=== PATIENT | female | born 1995 | race Caucasian/White ===

== ENCOUNTER 2023-06-20 05:34 | Inpatient (IN) | payer OTHER ==
[2023-06-20] MEDS ORDERED: SODIUM CHLORIDE 0.9% 500 ML INFUS.BAG IV ONE (05:56)
[2023-06-20] MEDS ORDERED: ONDANSETRON 4 MG/2 ML VIAL IVPUSH ONE (05:56)
[2023-06-20] MEDS ORDERED: ACETAMINOPHEN 1000 MG/100 ML BAG IVPB ONE (05:56)
[2023-06-20] MEDS ORDERED: FAMOTIDINE 20 MG/50 ML IVPB 20 MG/50 ML MG IVPB ONE ×2 (05:57→06:15)
[2023-06-20] MEDS ORDERED: MAG HYDROX/AL HYDROX/SIMETH 30 ML UNIT-DOSE CUP PO ONE (05:59)
[2023-06-20] MEDS ORDERED: ACETAMINOPHEN INJECTION 100 ML IVPB ONE (06:14)
[2023-06-20] MEDS ORDERED: ONDANSETRON 4 MG/2 ML VIAL ONE (06:15)
[2023-06-20] MEDS ORDERED: MAG HYDROX/AL HYDROX/SIMETH 30 ML UNIT-DOSE CUP ONE (06:15)
[2023-06-20 07:23] LABS: URINE APPEARANCE TURBID; URINE BILIRUBIN NEGATIVE (NEGATIVE); URINE COLOR YELLOW; URINE GLUCOSE (UA) NEGATIVE (NEGATIVE); URINE KETONE 2+ (NEGATIVE); URINE LEUK ESTERASE NEGATIVE (NEGATIVE); URINE NITRITE NEGATIVE (NEGATIVE); URINE PROTEIN NEGATIVE (NEGATIVE); URINE UROBILINOGEN 0.2 mg/dL (0.2-1.0)
[2023-06-20 07:26] LABS: BASO % 0.6 % (0-2.0); EOS % 1.6 % (0-4.5); HEMATOCRIT 41.2 % (32.4-45.2); HEMOGLOBIN 13.8 GM/dL (10.7-15.3); LYMPH % 27.4 % (8-40); MCH 30.7 pg (25.7-33.7); MCHC 33.5 g/dl (32.0-36.0); MEAN CELL VOLUME 91.7 fl (80-96); MEAN PLT VOLUME 10.2 fl (7.5-11.1); NEUT % 64.4 % (42.8-82.8); PLATELET COUNT 242 10^3/uL (134-434); RBC 4.49 M/mm3 (3.60-5.2); WHITE BLOOD COUNT 11.7 K/mm3 (4.0-10.0)
[2023-06-20 07:40] LABS: POTASSIUM 3.5 mmol/L (3.5-5.1)
[2023-06-20 07:42] LABS: BLOOD UREA NITROGEN 14.3 mg/dL (7-18); CALCIUM 9.1 mg/dL (8.5-10.1)
[2023-06-20 07:43] LABS: ALBUMIN 4.2 g/dl (3.4-5.0)
[2023-06-20 07:45] LABS: CREATININE 0.8 mg/dL (0.55-1.3)
[2023-06-20 07:47] LABS: BILIRUBIN,TOTAL 0.5 mg/dL (0.2-1)
[2023-06-20] MEDS ORDERED: PIPERACILLIN/TAZOB 3.375 GM 3.375 GM in DEXTROSE 5%-WATER - 50 ML IVPB SCH (12:15)
[2023-06-20] MEDS ORDERED: PIPERACILLIN/TAZOB 3.375 GM 3.375 GM/50 ML BAG IVPB ONE (14:20)
[2023-06-20] MEDS: PIPERACILLIN/TAZOB 3.375 GM 3.375 GM in DEXTROSE 5%-WATER - 50 ML IVPB SCH (14:35)
[2023-06-20] MEDS ORDERED: DEXTROSE 5%-0.45% SALINE 1,000 ML IV SCH (15:45)
[2023-06-20] MEDS ORDERED: TRIMETHOBENZAMIDE HCL 200MG/2ML INJ IM PRN (21:22)
[2023-06-20 23:57] VITALS: BMI 29.2
[2023-06-21] MEDS: PIPERACILLIN/TAZOB 3.375 GM 3.375 GM in DEXTROSE 5%-WATER - 50 ML IVPB SCH ×3 (02:03→18:38)
[2023-06-21] MEDS ORDERED: ENOXAPARIN NA (PORCINE) 40 MG/0.4 ML DISP.SYRIN SQ SCH (10:00)
[2023-06-21 11:31] LABS: BASO % 0.9 % (0-2.0); EOS % 1.9 % (0-4.5); HEMOGLOBIN 13.2 GM/dL (10.7-15.3); INR 1.16 (0.83-1.09); LYMPH % 38.1 % (8-40); MCH 31.3 pg (25.7-33.7); MCHC 34.8 g/dl (32.0-36.0); MEAN CELL VOLUME 89.8 fl (80-96); MEAN PLT VOLUME 10.2 fl (7.5-11.1); NEUT % 51.1 % (42.8-82.8); PLATELET COUNT 246 10^3/uL (134-434); PROTHROMBIN TIME (PATIENT) 13.4 SEC (9.7-13.0); RBC 4.22 M/mm3 (3.60-5.2); RDW 13.2 % (11.6-15.6); WHITE BLOOD COUNT 8.8 K/mm3 (4.0-10.0)
[2023-06-21 11:49] LABS: POTASSIUM 3.3 mmol/L (3.5-5.1)
[2023-06-21] MEDS ORDERED: FENTANYL CITRATE/PF 50 MCG/ML VIAL ONE (11:53)
[2023-06-21] MEDS ORDERED: MIDAZOLAM HCL 2 MG/2 ML SINGLE DOSE VIAL ONE (11:53)
[2023-06-21] MEDS ORDERED: INDOMETHACIN 50 MG RECTAL SUPPOSITORY PR ONE (12:15)
[2023-06-21] MEDS ORDERED: IOHEXOL 300 MG/ML INFUS..BTL IJ ONE (12:27)
[2023-06-21 12:34] LABS: ALBUMIN 3.5 g/dl (3.4-5.0)
[2023-06-21 12:35] LABS: BLOOD UREA NITROGEN 4.5 mg/dL (7-18)
[2023-06-21 12:36] LABS: CALCIUM 8.1 mg/dL (8.5-10.1)
[2023-06-21 12:38] LABS: CREATININE 0.7 mg/dL (0.55-1.3); TOT PROT 6.6 g/dl (6.4-8.2)
[2023-06-21] MEDS ORDERED: LACTATED RINGERS SOLUTION 1,000 ML/1,000 ML INFUS.BAG IV SCH ×2 (13:00→21:00)
[2023-06-22] MEDS: PIPERACILLIN/TAZOB 3.375 GM 3.375 GM in DEXTROSE 5%-WATER - 50 ML IVPB SCH ×3 (02:52→17:35)
[2023-06-22] MEDS ORDERED: LACTATED RINGERS SOLUTION 1,000 ML/1,000 ML INFUS.BAG IV SCH (08:00)
[2023-06-22 09:06] LABS: MAGNESIUM 2.3 mg/dL (1.8-2.4)
[2023-06-22 09:10] LABS: PHOSPHOROUS 2.8 mg/dL (2.5-4.9)
[2023-06-22 09:27] LABS: BASO % 0.5 % (0-2.0); EOS % 0.2 % (0-4.5); HEMATOCRIT 35.6 % (32.4-45.2); HEMOGLOBIN 12.2 GM/dL (10.7-15.3); LYMPH % 24.9 % (8-40); MCH 31.3 pg (25.7-33.7); MCHC 34.2 g/dl (32.0-36.0); MEAN CELL VOLUME 91.5 fl (80-96); MEAN PLT VOLUME 9.9 fl (7.5-11.1); MONO % 6.9 % (3.8-10.2); NEUT % 67.5 % (42.8-82.8); PLATELET COUNT 221 10^3/uL (134-434); RBC 3.89 M/mm3 (3.60-5.2); RDW 12.8 % (11.6-15.6)
[2023-06-22] MEDS ORDERED: POTASSIUM CHLORIDE ORAL LIQUID 20 MEQ/15 ML PO ONE (09:30)
[2023-06-22 09:43] LABS: POTASSIUM 3.6 mmol/L (3.5-5.1)
[2023-06-22] MEDS: POLYETHYLENE GLYCOL (HEALTHYLAX) 3350 17 GM PACKET PO SCH (09:50)
[2023-06-22 09:52] LABS: CREATININE 0.6 mg/dL (0.55-1.3); MAGNESIUM 2.1 mg/dL (1.8-2.4)
[2023-06-22 09:55] LABS: TOT PROT 6.1 g/dl (6.4-8.2)
[2023-06-22 09:59] LABS: ALBUMIN 3.2 g/dl (3.4-5.0); PHOSPHOROUS 3.1 mg/dL (2.5-4.9)
[2023-06-22 10:01] LABS: CALCIUM 8.5 mg/dL (8.5-10.1)
[2023-06-22 10:02] LABS: BILIRUBIN,DIRECT 0.2 mg/dL (0.0-0.2)
[2023-06-22 10:36] LABS: BILIRUBIN,TOTAL 0.7 mg/dL (0.2-1)
[2023-06-22] MEDS ORDERED: ACETAMINOPHEN 1000 MG/100 ML BAG IVPB PRN (12:12)
[2023-06-22] MEDS: LACTATED RINGERS SOLUTION 1,000 ML/1,000 ML INFUS.BAG IV SCH ×2 (16:04→22:17)
[2023-06-23] MEDS: PIPERACILLIN/TAZOB 3.375 GM 3.375 GM in DEXTROSE 5%-WATER - 50 ML IVPB SCH (02:00)
[2023-06-23] MEDS: LACTATED RINGERS SOLUTION 1,000 ML/1,000 ML INFUS.BAG IV SCH ×3 (05:28→17:39)
[2023-06-23] MEDS: POLYETHYLENE GLYCOL (HEALTHYLAX) 3350 17 GM PACKET PO SCH (09:00)
[2023-06-23 09:57] LABS: HEMATOCRIT 37.8 % (32.4-45.2); HEMOGLOBIN 12.6 GM/dL (10.7-15.3); MCH 30.9 pg (25.7-33.7); MCHC 33.4 g/dl (32.0-36.0); MEAN CELL VOLUME 92.6 fl (80-96); MEAN PLT VOLUME 10.2 fl (7.5-11.1); PLATELET COUNT 229 10^3/uL (134-434); RBC 4.08 M/mm3 (3.60-5.2); RDW 13.1 % (11.6-15.6); WHITE BLOOD COUNT 12.8 K/mm3 (4.0-10.0)
[2023-06-23 09:59] LABS: POTASSIUM 3.8 mmol/L (3.5-5.1)
[2023-06-23 10:03] LABS: CALCIUM 8.4 mg/dL (8.5-10.1)
[2023-06-23 10:04] LABS: ALBUMIN 3.5 g/dl (3.4-5.0); BLOOD UREA NITROGEN 6.5 mg/dL (7-18); MAGNESIUM 1.9 mg/dL (1.8-2.4)
[2023-06-23 10:06] LABS: CREATININE 0.7 mg/dL (0.55-1.3)
[2023-06-23 10:07] LABS: TOT PROT 6.4 g/dl (6.4-8.2)
[2023-06-23 10:08] LABS: PHOSPHOROUS 3.5 mg/dL (2.5-4.9)
[2023-06-23 10:09] LABS: BILIRUBIN,TOTAL 0.8 mg/dL (0.2-1)
[2023-06-23 21:11] VITALS: RESP 18
[2023-06-24] MEDS: LACTATED RINGERS SOLUTION 1,000 ML/1,000 ML INFUS.BAG IV SCH ×3 (03:17→16:10)
[2023-06-24 09:48] LABS: BASO % 0.5 % (0-2.0); EOS % 1.8 % (0-4.5); HEMATOCRIT 37.4 % (32.4-45.2); HEMOGLOBIN 12.7 GM/dL (10.7-15.3); LYMPH % 28.2 % (8-40); MCH 30.9 pg (25.7-33.7); MCHC 33.8 g/dl (32.0-36.0); MEAN CELL VOLUME 91.4 fl (80-96); MONO % 7.9 % (3.8-10.2); NEUT % 61.6 % (42.8-82.8); PLATELET COUNT 241 10^3/uL (134-434); RDW 12.9 % (11.6-15.6); WHITE BLOOD COUNT 11.6 K/mm3 (4.0-10.0)
[2023-06-24 10:09] LABS: POTASSIUM 3.7 mmol/L (3.5-5.1)
[2023-06-24 10:18] LABS: CALCIUM 8.4 mg/dL (8.5-10.1)
[2023-06-24 10:19] LABS: ALBUMIN 3.3 g/dl (3.4-5.0); BLOOD UREA NITROGEN 6.9 mg/dL (7-18)
[2023-06-24 10:22] LABS: CREATININE 0.6 mg/dL (0.55-1.3)
[2023-06-24 10:23] LABS: BILIRUBIN,TOTAL 1.4 mg/dL (0.2-1); TOT PROT 6.5 g/dl (6.4-8.2)
[2023-06-24] MEDS: POLYETHYLENE GLYCOL (HEALTHYLAX) 3350 17 GM PACKET PO SCH (12:38)
[2023-06-25] MEDS: POLYETHYLENE GLYCOL (HEALTHYLAX) 3350 17 GM PACKET PO SCH (09:25)
[2023-06-25 10:51] VITALS: BP 101/75; PULSE 74; TEMP 97.7
[2023-06-25 10:59] LABS: HEMATOCRIT 39.2 % (32.4-45.2); HEMOGLOBIN 13.7 GM/dL (10.7-15.3); MCH 31.6 pg (25.7-33.7); MCHC 35.1 g/dl (32.0-36.0); MEAN PLT VOLUME 9.7 fl (7.5-11.1); PLATELET COUNT 265 10^3/uL (134-434); RBC 4.35 M/mm3 (3.60-5.2); RDW 12.7 % (11.6-15.6); WHITE BLOOD COUNT 10.7 K/mm3 (4.0-10.0)
[2023-06-25 11:22] LABS: POTASSIUM 3.7 mmol/L (3.5-5.1)
[2023-06-25 11:29] LABS: ALBUMIN 3.6 g/dl (3.4-5.0); BLOOD UREA NITROGEN 8.7 mg/dL (7-18); CALCIUM 8.9 mg/dL (8.5-10.1); MAGNESIUM 2.3 mg/dL (1.8-2.4)
[2023-06-25 11:32] LABS: CREATININE 0.7 mg/dL (0.55-1.3); PHOSPHOROUS 2.9 mg/dL (2.5-4.9)
[2023-06-25 11:33] LABS: TOT PROT 7.1 g/dl (6.4-8.2)
[2023-06-25 11:34] LABS: BILIRUBIN,TOTAL 0.5 mg/dL (0.2-1)
== END 2023-06-25 14:01 | disposition home or self-care (01) ==
LOC: JER 05:34 → JERBED 12:47 → J6S 18:51
PROVIDERS: ADMIT Internal Medicine; ATTEND Internal Medicine
PROC: 0FC98ZZ Extirpation of Matter from Common Bile Duct, Via Natural or Artificial Opening Endoscopic (ICD-10-PCS; principal; 2023-06-21 11:30)
DX: K80.50 Calculus of bile duct without cholangitis or cholecystitis without obstruction (principal); R94.5 Abnormal results of liver function studies; E87.6 Hypokalemia; K85.80 Other acute pancreatitis without necrosis or infection; R11.2 Nausea with vomiting, unspecified; T81.89XA Other complications of procedures, not elsewhere classified, initial encounter; Y83.8 Other surgical procedures as the cause of abnormal reaction of the patient, or of later complication, without mention of misadventure at the time of the procedure
CPT/HCPCS: 0241U-QW; 36415; 74177-TC; 76000-TC-FY; 76705-TC; 80053; 81003; 82150; 82248; 83690; 83735; 84100; 84703; 85025; 85027; 85610; 86140; 86850; 86900; 86901; 87086; 99285-25; Q9967

== ENCOUNTER 2023-07-16 03:58 | Inpatient (IN) | payer OTHER ==
[2023-07-16] MEDS ORDERED: ONDANSETRON 4 MG/2 ML VIAL IVPUSH ONE ×2 (04:40→10:20)
[2023-07-16] MEDS ORDERED: FAMOTIDINE 20 MG/50 ML IVPB 20 MG/50 ML MG IVPB ONE ×2 (04:41→05:19)
[2023-07-16] MEDS ORDERED: ACETAMINOPHEN 1000 MG/100 ML BAG IVPB ONE (04:41)
[2023-07-16] MEDS ORDERED: SODIUM CHLORIDE 1,000 ML IV STA (05:15)
[2023-07-16] MEDS ORDERED: ACETAMINOPHEN INJECTION 0 ML IVPB ONE (05:18)
[2023-07-16] MEDS ORDERED: ONDANSETRON 4 MG/2 ML VIAL ONE ×3 (05:18→18:36)
[2023-07-16 06:34] LABS: BASO % 0.4 % (0-2.0); EOS % 0.5 % (0-4.5); HEMATOCRIT 43.8 % (32.4-45.2); HEMOGLOBIN 14.5 GM/dL (10.7-15.3); LYMPH % 13.9 % (8-40); MCH 30.5 pg (25.7-33.7); MCHC 33.2 g/dl (32.0-36.0); MEAN CELL VOLUME 91.9 fl (80-96); MEAN PLT VOLUME 10.5 fl (7.5-11.1); MONO % 3.4 % (3.8-10.2); NEUT % 81.8 % (42.8-82.8); PLATELET COUNT 237 10^3/uL (134-434); RBC 4.76 M/mm3 (3.60-5.2); WHITE BLOOD COUNT 11.5 K/mm3 (4.0-10.0)
[2023-07-16 06:48] LABS: POTASSIUM 3.8 mmol/L (3.5-5.1)
[2023-07-16 06:49] LABS: ALBUMIN 4.5 g/dl (3.4-5.0); CALCIUM 9.4 mg/dL (8.5-10.1)
[2023-07-16 06:51] LABS: BLOOD UREA NITROGEN 7.5 mg/dL (7-18)
[2023-07-16 06:52] LABS: CREATININE 0.7 mg/dL (0.55-1.3); PHOSPHOROUS 2.5 mg/dL (2.5-4.9)
[2023-07-16 06:54] LABS: BILIRUBIN,TOTAL 0.5 mg/dL (0.2-1); TOT PROT 8.3 g/dl (6.4-8.2)
[2023-07-16 07:10] LABS: INR 1.03 (0.83-1.09)
[2023-07-16 07:13] LABS: ACTIVATED PTT 37.8 SECONDS (25.2-36.5)
[2023-07-16] MEDS ORDERED: ACETAMINOPHEN INJECTION 100 ML IVPB ONE (09:05)
[2023-07-16] MEDS ORDERED: FENTANYL CITRATE/PF 50 MCG/ML VIAL ONE (09:10)
[2023-07-16 09:13] LABS: PH,URINE 7.5 (5.0-8.0); URINE APPEARANCE CLEAR; URINE BILIRUBIN NEGATIVE (NEGATIVE); URINE COLOR YELLOW; URINE GLUCOSE (UA) NEGATIVE (NEGATIVE); URINE KETONE 1+ (NEGATIVE); URINE LEUK ESTERASE NEGATIVE (NEGATIVE); URINE NITRITE NEGATIVE (NEGATIVE); URINE PROTEIN NEGATIVE (NEGATIVE); URINE UROBILINOGEN 0.2 mg/dL (0.2-1.0)
[2023-07-16] MEDS ORDERED: morphine CARPU-JECT 2 MG/1 ML DISP.SYRIN IVPUSH ONE (12:50)
[2023-07-16] MEDS ORDERED: METOCLOPRAMIDE HCL INJECTION 10 MG/2 ML VIAL IVPB ONE (13:34)
[2023-07-16] MEDS ORDERED: METOCLOPRAMIDE HCL INJECTION 10 MG/2 ML VIAL ONE (13:35)
[2023-07-16] MEDS: LACTATED RINGERS SOLUTION 1,000 ML/1,000 ML INFUS.BAG IV SCH (16:51)
[2023-07-16] MEDS: ONDANSETRON 4 MG/2 ML VIAL IVPUSH PRN (18:48)
[2023-07-17] MEDS: LACTATED RINGERS SOLUTION 1,000 ML/1,000 ML INFUS.BAG IV SCH ×3 (04:14→16:25)
[2023-07-17 04:41] VITALS: BMI 28.9
[2023-07-17] MEDS: ACETAMINOPHEN 1000 MG/100 ML BAG IVPB PRN ×3 (06:11→18:11)
[2023-07-17 10:57] LABS: BASO % 0.6 % (0-2.0); EOS % 1.1 % (0-4.5); HEMATOCRIT 40.7 % (32.4-45.2); HEMOGLOBIN 13.8 GM/dL (10.7-15.3); LYMPH % 17.4 % (8-40); MCH 30.6 pg (25.7-33.7); MCHC 33.9 g/dl (32.0-36.0); MEAN CELL VOLUME 90.3 fl (80-96); MEAN PLT VOLUME 9.9 fl (7.5-11.1); MONO % 6.4 % (3.8-10.2); NEUT % 74.5 % (42.8-82.8); PLATELET COUNT 221 10^3/uL (134-434); RBC 4.51 M/mm3 (3.60-5.2); WHITE BLOOD COUNT 11.9 K/mm3 (4.0-10.0)
[2023-07-17 11:35] LABS: POTASSIUM 3.8 mmol/L (3.5-5.1)
[2023-07-17 11:38] LABS: CALCIUM 8.8 mg/dL (8.5-10.1)
[2023-07-17 11:39] LABS: BLOOD UREA NITROGEN 6.1 mg/dL (7-18)
[2023-07-17 11:42] LABS: CREATININE 0.6 mg/dL (0.55-1.3)
[2023-07-17] MEDS: ONDANSETRON 4 MG/2 ML VIAL IVPUSH PRN ×2 (12:10→23:00)
[2023-07-17 12:42] LABS: ALBUMIN 3.8 g/dl (3.4-5.0)
[2023-07-17 12:45] LABS: BILIRUBIN,DIRECT 0.2 mg/dL (0.0-0.2)
[2023-07-17 12:46] LABS: BILIRUBIN,TOTAL 0.7 mg/dL (0.2-1)
[2023-07-17] MEDS ORDERED: CEFTRIAXONE 1 GM in DEXTROSE 5%-WATER - 50 ML IVPB ONE (14:30)
[2023-07-17] MEDS ORDERED: AMINO ACIDS/PROTEIN HYDROLYS 30 ML LIQUID.PKT PO SCH (17:30)
[2023-07-18 08:36] LABS: BASO % 0.5 % (0-2.0); EOS % 1.8 % (0-4.5); HEMATOCRIT 38.1 % (32.4-45.2); HEMOGLOBIN 13.3 GM/dL (10.7-15.3); LYMPH % 25.5 % (8-40); MCH 31.3 pg (25.7-33.7); MCHC 34.9 g/dl (32.0-36.0); MEAN CELL VOLUME 89.5 fl (80-96); MEAN PLT VOLUME 10.3 fl (7.5-11.1); NEUT % 64.2 % (42.8-82.8); PLATELET COUNT 218 10^3/uL (134-434); RBC 4.26 M/mm3 (3.60-5.2); RDW 13.2 % (11.6-15.6); WHITE BLOOD COUNT 9.7 K/mm3 (4.0-10.0)
[2023-07-18 08:48] LABS: POTASSIUM 3.7 mmol/L (3.5-5.1)
[2023-07-18 08:50] LABS: CALCIUM 8.5 mg/dL (8.5-10.1)
[2023-07-18 08:51] LABS: ALBUMIN 3.6 g/dl (3.4-5.0); BLOOD UREA NITROGEN 5.6 mg/dL (7-18)
[2023-07-18 08:53] LABS: CREATININE 0.6 mg/dL (0.55-1.3)
[2023-07-18 08:55] LABS: BILIRUBIN,TOTAL 0.7 mg/dL (0.2-1); TOT PROT 6.6 g/dl (6.4-8.2)
[2023-07-18] MEDS: LACTATED RINGERS SOLUTION 1,000 ML/1,000 ML INFUS.BAG IV SCH ×2 (11:38→16:13)
[2023-07-18] MEDS: ACETAMINOPHEN 1000 MG/100 ML BAG IVPB PRN (12:28)
[2023-07-18] MEDS: ONDANSETRON 4 MG/2 ML VIAL IVPUSH PRN (17:33)
[2023-07-18] MEDS ORDERED: ACETAMINOPHEN 1000 MG/100 ML BAG IVPB PRN (19:43)
[2023-07-18] MEDS: KETOROLAC TROMETHAMINE 15 MG/ML VIAL IVPUSH SCH (21:13)
[2023-07-19] MEDS: KETOROLAC TROMETHAMINE 15 MG/ML VIAL IVPUSH SCH ×4 (03:13→21:13)
[2023-07-19] MEDS: CEFTRIAXONE 1 GM in DEXTROSE 5%-WATER - 50 ML IVPB SCH (09:26)
[2023-07-19 10:10] LABS: BASO % 0.4 % (0-2.0); EOS % 2.1 % (0-4.5); HEMATOCRIT 38.5 % (32.4-45.2); HEMOGLOBIN 12.9 GM/dL (10.7-15.3); LYMPH % 25.3 % (8-40); MCH 30.7 pg (25.7-33.7); MCHC 33.5 g/dl (32.0-36.0); MEAN CELL VOLUME 91.5 fl (80-96); MEAN PLT VOLUME 10.1 fl (7.5-11.1); NEUT % 63.2 % (42.8-82.8); PLATELET COUNT 214 10^3/uL (134-434); RBC 4.21 M/mm3 (3.60-5.2); RDW 12.7 % (11.6-15.6); WHITE BLOOD COUNT 9.9 K/mm3 (4.0-10.0)
[2023-07-19 10:37] LABS: POTASSIUM 3.9 mmol/L (3.5-5.1)
[2023-07-19 10:40] LABS: CALCIUM 8.9 mg/dL (8.5-10.1); MAGNESIUM 2.1 mg/dL (1.8-2.4)
[2023-07-19 10:42] LABS: ALBUMIN 3.4 g/dl (3.4-5.0)
[2023-07-19 10:43] LABS: CREATININE 0.6 mg/dL (0.55-1.3)
[2023-07-19 10:45] LABS: BILIRUBIN,TOTAL 0.7 mg/dL (0.2-1); TOT PROT 6.6 g/dl (6.4-8.2)
[2023-07-19] MEDS ORDERED: INDOMETHACIN 50 MG RECTAL SUPPOSITORY PR ONE (12:00)
[2023-07-19] MEDS ORDERED: FENTANYL CITRATE/PF 50 MCG/ML VIAL ONE (14:57)
[2023-07-19] MEDS ORDERED: IOHEXOL 180 MG/1 ML ML IJ ONE (15:11)
[2023-07-19] MEDS: LACTATED RINGERS SOLUTION 1,000 ML/1,000 ML INFUS.BAG IV SCH ×2 (16:27→21:19)
[2023-07-19] MEDS ORDERED: LACTATED RINGERS SOLUTION 1,000 ML/1,000 ML INFUS.BAG IV SCH (23:00)
[2023-07-20] MEDS: KETOROLAC TROMETHAMINE 15 MG/ML VIAL IVPUSH SCH ×3 (02:06→18:27)
[2023-07-20 08:44] LABS: BASO % 0.3 % (0-2.0); EOS % 0.6 % (0-4.5); HEMATOCRIT 37.7 % (32.4-45.2); HEMOGLOBIN 13.2 GM/dL (10.7-15.3); LYMPH % 19.4 % (8-40); MCH 31.1 pg (25.7-33.7); MCHC 34.9 g/dl (32.0-36.0); MEAN PLT VOLUME 10.2 fl (7.5-11.1); NEUT % 71.7 % (42.8-82.8); PLATELET COUNT 230 10^3/uL (134-434); RBC 4.24 M/mm3 (3.60-5.2); RDW 12.8 % (11.6-15.6); WHITE BLOOD COUNT 10.1 K/mm3 (4.0-10.0)
[2023-07-20 08:57] LABS: ALBUMIN 3.2 g/dl (3.4-5.0)
[2023-07-20 08:58] LABS: BLOOD UREA NITROGEN 7.2 mg/dL (7-18); CALCIUM 8.7 mg/dL (8.5-10.1)
[2023-07-20 09:00] LABS: CREATININE 0.5 mg/dL (0.55-1.3)
[2023-07-20] MEDS ORDERED: LACTATED RINGERS SOLUTION 1,000 ML/1,000 ML INFUS.BAG IV SCH ×2 (09:00→18:00)
[2023-07-20 09:02] LABS: BILIRUBIN,TOTAL 0.6 mg/dL (0.2-1); TOT PROT 6.3 g/dl (6.4-8.2)
[2023-07-20] MEDS: CEFTRIAXONE 1 GM in DEXTROSE 5%-WATER - 50 ML IVPB SCH (09:12)
[2023-07-20] MEDS ORDERED: INDOCYANINE GREEN 25 MG/10 ML VIAL IVPUSH ONE (16:21)
[2023-07-20] MEDS ORDERED: FENTANYL CITRATE/PF 50 MCG/ML VIAL ONE ×6 (17:01→21:24)
[2023-07-20] MEDS ORDERED: MIDAZOLAM HCL 2 MG/2 ML SINGLE DOSE VIAL ONE (17:02)
[2023-07-20] MEDS ORDERED: ROCURONIUM BROMIDE 50 MG/5 ML SYRINGE ONE ×2 (17:02→19:18)
[2023-07-20] MEDS ORDERED: PROPOFOL 20 ML ONE (17:02)
[2023-07-20] MEDS ORDERED: ONDANSETRON 4 MG/2 ML VIAL ONE ×2 (17:26→20:11)
[2023-07-20] MEDS ORDERED: DEXAMETHASONE SOD PHOSPHATE 4 MG/1 ML VIAL ONE (17:26)
[2023-07-20] MEDS ORDERED: cefOXitin SODIUM 2 GM VIAL (RESTRICTED TO ID) IVPB ONE (17:30)
[2023-07-20] MEDS ORDERED: BUPIVACAINE HCL/PF 0.5% (5 MG/ML) 30 ML VIAL IJ ONE (17:51)
[2023-07-20] MEDS ORDERED: HYDROmorphone HCl 2 MG/ML VIAL ONE (18:28)
[2023-07-20] MEDS ORDERED: NEOSTIGMINE METHYLSULFATE 0.5 MG/1 ML - 10 ML MDV ONE (20:10)
[2023-07-20] MEDS ORDERED: ONDANSETRON 4 MG/2 ML VIAL IVPUSH PRN ×2 (20:28→20:40)
[2023-07-20] MEDS ORDERED: LACTATED RINGERS SOLUTION 1,000 ML IV SCH (20:30)
[2023-07-20] MEDS ORDERED: oxyCODONE HCL 5 MG TABLET PO PRN (20:40)
[2023-07-20] MEDS ORDERED: KETOROLAC TROMETHAMINE 30 MG/1 ML VIAL ONE (20:43)
[2023-07-20] MEDS: KETOROLAC TROMETHAMINE 15 MG/ML VIAL IVPUSH ONE ×2 (20:45→21:26)
[2023-07-20] MEDS: LACTATED RINGERS SOLUTION 1,000 ML IV SCH (21:50)
[2023-07-21] MEDS ORDERED: IBUPROFEN 600 MG TABLET (FP) PO PRN (03:00)
[2023-07-21 03:32] VITALS: RESP 18
[2023-07-21] MEDS: oxyCODONE HCL 5 MG TABLET PO PRN ×2 (05:23→10:41)
[2023-07-21] MEDS: LACTATED RINGERS SOLUTION 1,000 ML IV SCH ×2 (05:43→22:44)
[2023-07-21 08:37] LABS: POTASSIUM 3.9 mmol/L (3.5-5.1)
[2023-07-21 08:50] LABS: ALBUMIN 3.2 g/dl (3.4-5.0); CALCIUM 8.4 mg/dL (8.5-10.1)
[2023-07-21 08:51] LABS: BLOOD UREA NITROGEN 7.8 mg/dL (7-18)
[2023-07-21 08:53] LABS: CREATININE 0.6 mg/dL (0.55-1.3)
[2023-07-21 08:55] LABS: BILIRUBIN,TOTAL 0.4 mg/dL (0.2-1); TOT PROT 6.1 g/dl (6.4-8.2)
[2023-07-21 08:56] LABS: BASO % 0.5 % (0-2.0); EOS % 1.2 % (0-4.5); HEMATOCRIT 36.2 % (32.4-45.2); HEMOGLOBIN 11.9 GM/dL (10.7-15.3); LYMPH % 17.6 % (8-40); MCH 30.5 pg (25.7-33.7); MEAN CELL VOLUME 92.3 fl (80-96); MONO % 6.4 % (3.8-10.2); NEUT % 74.3 % (42.8-82.8); PLATELET COUNT 242 10^3/uL (134-434); RBC 3.92 M/mm3 (3.60-5.2); WHITE BLOOD COUNT 10.1 K/mm3 (4.0-10.0)
[2023-07-21] MEDS: CEFTRIAXONE 1 GM in DEXTROSE 5%-WATER - 50 ML IVPB SCH (10:55)
[2023-07-22 10:12] LABS: POTASSIUM 3.5 mmol/L (3.5-5.1)
[2023-07-22] MEDS: CEFTRIAXONE 1 GM in DEXTROSE 5%-WATER - 50 ML IVPB SCH (10:19)
[2023-07-22 10:20] LABS: ALBUMIN 3.1 g/dl (3.4-5.0); BLOOD UREA NITROGEN 6.1 mg/dL (7-18); CALCIUM 7.9 mg/dL (8.5-10.1); MAGNESIUM 1.9 mg/dL (1.8-2.4)
[2023-07-22 10:23] LABS: CREATININE 0.5 mg/dL (0.55-1.3); TOT PROT 5.8 g/dl (6.4-8.2)
[2023-07-22 10:25] LABS: BILIRUBIN,TOTAL 0.4 mg/dL (0.2-1)
[2023-07-22 11:03] LABS: BASO % 1.1 % (0-2.0); EOS % 4.6 % (0-4.5); HEMATOCRIT 34.4 % (32.4-45.2); HEMOGLOBIN 11.7 GM/dL (10.7-15.3); LYMPH % 35.4 % (8-40); MCH 30.9 pg (25.7-33.7); MCHC 33.9 g/dl (32.0-36.0); MEAN PLT VOLUME 9.9 fl (7.5-11.1); MONO % 7.5 % (3.8-10.2); NEUT % 51.4 % (42.8-82.8); PLATELET COUNT 213 10^3/uL (134-434); RBC 3.78 M/mm3 (3.60-5.2); RDW 13.5 % (11.6-15.6); WHITE BLOOD COUNT 8.1 K/mm3 (4.0-10.0)
[2023-07-22] MEDS ORDERED: NEOMYCIN/COLISTIN/HC OTIC SUSP 5 ML BOTTLE AS SCH (15:00)
[2023-07-22 15:25] VITALS: BP 117/60; PULSE 79; TEMP 98.5
== END 2023-07-22 17:46 | disposition home or self-care (01) | DRG 264 ==
LOC: JER 03:58 → JERBED 14:30 → J8W 07-17 00:28 → OBSVTOIN 07-17 13:56
PROVIDERS: ADMIT Internal Medicine; ATTEND Nurse Practitioner Acute Care
PROC: 0FC98ZZ Extirpation of Matter from Common Bile Duct, Via Natural or Artificial Opening Endoscopic (ICD-10-PCS; 2023-07-19)
PROC: BF12YZZ Fluoroscopy of Gallbladder using Other Contrast (ICD-10-PCS; 2023-07-19)
PROC: 0DNU4ZZ Release Omentum, Percutaneous Endoscopic Approach (ICD-10-PCS; 2023-07-20)
PROC: 8E0W4CZ Robotic Assisted Procedure of Trunk Region, Percutaneous Endoscopic Approach (ICD-10-PCS; 2023-07-20)
PROC: 0W9G4ZZ Drainage of Peritoneal Cavity, Percutaneous Endoscopic Approach (ICD-10-PCS; principal; 2023-07-20 15:00)
DX: K80.50 Calculus of bile duct without cholangitis or cholecystitis without obstruction (principal); N39.0 Urinary tract infection, site not specified; K66.0 Peritoneal adhesions (postprocedural) (postinfection); H60.90 Unspecified otitis externa, unspecified ear; R10.9 Unspecified abdominal pain; R11.10 Vomiting, unspecified
CPT/HCPCS: 36415; 74177-TC; 74181-TC; 74330-TC; 76000-TC-FY; 76705-TC; 80048; 80053; 80076; 81003; 82150; 83605; 83690; 83735; 84100; 84703; 85025; 85610; 85730; 86140; 86707; 86708; 86803; 87077; 87086; 87340; 87350; 87517; 93005; 93010; 94760; 99285-25; C1750; C1769; G0378; Q9967

== ENCOUNTER 2023-12-24 21:12 | Inpatient (IN) | payer OTHER ==
[2023-12-24 21:29] VITALS: BMI 29.2
[2023-12-24] MEDS ORDERED: ACETAMINOPHEN INJECTION 100 ML IVPB ONE (22:51)
[2023-12-24] MEDS ORDERED: ONDANSETRON 4 MG/2 ML VIAL ONE (22:51)
[2023-12-24] MEDS ORDERED: FAMOTIDINE 20 MG/50 ML IVPB 20 MG/50 ML MG IVPB ONE (22:51)
[2023-12-24] MEDS: ACETAMINOPHEN 1000 MG/100 ML BAG IVPB ONE (23:06)
[2023-12-24] MEDS: SODIUM CHLORIDE 0.9% 500 ML INFUS.BAG IV ONE (23:06)
[2023-12-24] MEDS: ONDANSETRON 4 MG/2 ML VIAL IVPUSH ONE (23:07)
[2023-12-24] MEDS: FAMOTIDINE 20 MG/50 ML IVPB 20 MG/50 ML MG IVPB ONE (23:07)
[2023-12-24 23:14] LABS: BASO % 0.4 % (0-2.0); EOS % 0.6 % (0-4.5); HEMATOCRIT 44.1 % (32.4-45.2); HEMOGLOBIN 15.2 GM/dL (10.7-15.3); LYMPH % 16.6 % (8-40); MCH 31.4 pg (25.7-33.7); MCHC 34.6 g/dl (32.0-36.0); MEAN CELL VOLUME 90.9 fl (80-96); MONO % 6.9 % (3.8-10.2); NEUT % 75.5 % (42.8-82.8); PLATELET COUNT 240 10^3/uL (134-434); RBC 4.85 M/mm3 (3.60-5.2); RDW 12.9 % (11.6-15.6); WHITE BLOOD COUNT 12.9 K/mm3 (4.0-10.0)
[2023-12-25 00:08] LABS: POTASSIUM 3.7 mmol/L (3.5-5.1)
[2023-12-25 00:11] LABS: ALBUMIN 4.3 g/dl (3.4-5.0); CALCIUM 9.9 mg/dL (8.5-10.1)
[2023-12-25 00:14] LABS: CREATININE 0.8 mg/dL (0.55-1.3)
[2023-12-25 00:15] LABS: BILIRUBIN,TOTAL 1.9 mg/dL (0.2-1)
[2023-12-25 00:28] LABS: BLOOD UREA NITROGEN 13.2 mg/dL (7-18)
[2023-12-25 05:25] LABS: BILIRUBIN,DIRECT 0.8 mg/dL (0.0-0.2)
[2023-12-25] MEDS: SODIUM CHLORIDE 1,000 ML IV SCH (05:52)
[2023-12-25 07:26] LABS: HEMATOCRIT 38.9 % (32.4-45.2); HEMOGLOBIN 13.5 GM/dL (10.7-15.3); MCH 31.7 pg (25.7-33.7); MCHC 34.7 g/dl (32.0-36.0); MEAN CELL VOLUME 91.3 fl (80-96); MEAN PLT VOLUME 9.9 fl (7.5-11.1); PLATELET COUNT 205 10^3/uL (134-434); RBC 4.26 M/mm3 (3.60-5.2); RDW 12.9 % (11.6-15.6); WHITE BLOOD COUNT 6.7 K/mm3 (4.0-10.0)
[2023-12-25 07:33] LABS: INR 1.18 (0.83-1.09); PROTHROMBIN TIME (PATIENT) 13.7 SEC (9.7-13.0)
[2023-12-25 07:36] LABS: ACTIVATED PTT 35.5 SECONDS (25.2-36.5)
[2023-12-25 07:46] LABS: POTASSIUM 3.7 mmol/L (3.5-5.1)
[2023-12-25 07:48] LABS: ALBUMIN 3.6 g/dl (3.4-5.0); BLOOD UREA NITROGEN 11.5 mg/dL (7-18); MAGNESIUM 2.4 mg/dL (1.8-2.4)
[2023-12-25 07:51] LABS: BILIRUBIN,DIRECT 0.3 mg/dL (0.0-0.2); CREATININE 0.7 mg/dL (0.55-1.3); PHOSPHOROUS 3.5 mg/dL (2.5-4.9)
[2023-12-25 07:53] LABS: TOT PROT 6.7 g/dl (6.4-8.2)
[2023-12-25] MEDS ORDERED: PIPERACILLIN/TAZOB 3.375 GM 3.375 GM in DEXTROSE 5%-WATER - 50 ML IVPB SCH (18:00)
[2023-12-25] MEDS ORDERED: PIPERACILLIN/TAZOB 3.375 GM 3.375 GM/50 ML BAG IVPB ONE (18:19)
[2023-12-25] MEDS: PIPERACILLIN/TAZOB 3.375 GM 3.375 GM in DEXTROSE 5%-WATER - 50 ML IVPB SCH (18:19)
[2023-12-26 08:04] LABS: BASO % 0.8 % (0-2.0); EOS % 2.7 % (0-4.5); HEMATOCRIT 38.9 % (32.4-45.2); HEMOGLOBIN 13.4 GM/dL (10.7-15.3); LYMPH % 37.9 % (8-40); MCH 31.6 pg (25.7-33.7); MCHC 34.3 g/dl (32.0-36.0); MEAN CELL VOLUME 92.2 fl (80-96); MEAN PLT VOLUME 10.2 fl (7.5-11.1); MONO % 8.9 % (3.8-10.2); NEUT % 49.7 % (42.8-82.8); PLATELET COUNT 204 10^3/uL (134-434); POTASSIUM 3.7 mmol/L (3.5-5.1); RBC 4.22 M/mm3 (3.60-5.2); RDW 12.6 % (11.6-15.6); WHITE BLOOD COUNT 6.8 K/mm3 (4.0-10.0)
[2023-12-26 08:13] LABS: ALBUMIN 3.4 g/dl (3.4-5.0); BLOOD UREA NITROGEN 9.3 mg/dL (7-18); CALCIUM 8.7 mg/dL (8.5-10.1)
[2023-12-26 08:14] LABS: MAGNESIUM 2.3 mg/dL (1.8-2.4)
[2023-12-26 08:16] LABS: CREATININE 0.8 mg/dL (0.55-1.3)
[2023-12-26 08:18] LABS: TOT PROT 6.3 g/dl (6.4-8.2)
[2023-12-26 08:19] LABS: BILIRUBIN,TOTAL 2.5 mg/dL (0.2-1)
[2023-12-26] MEDS: ONDANSETRON 4 MG/2 ML VIAL IVPUSH PRN (09:10)
[2023-12-27 09:04] LABS: BASO % 0.9 % (0-2.0); EOS % 1.8 % (0-4.5); HEMATOCRIT 41.2 % (32.4-45.2); HEMOGLOBIN 13.7 GM/dL (10.7-15.3); LYMPH % 27.3 % (8-40); MCH 30.9 pg (25.7-33.7); MCHC 33.3 g/dl (32.0-36.0); MEAN CELL VOLUME 92.6 fl (80-96); MEAN PLT VOLUME 10.4 fl (7.5-11.1); MONO % 7.3 % (3.8-10.2); NEUT % 62.7 % (42.8-82.8); PLATELET COUNT 231 10^3/uL (134-434); RBC 4.45 M/mm3 (3.60-5.2); RDW 12.9 % (11.6-15.6); WHITE BLOOD COUNT 6.5 K/mm3 (4.0-10.0)
[2023-12-27 09:33] LABS: POTASSIUM 3.8 mmol/L (3.5-5.1)
[2023-12-27 09:37] LABS: ALBUMIN 3.7 g/dl (3.4-5.0); BLOOD UREA NITROGEN 9.4 mg/dL (7-18); CALCIUM 9.3 mg/dL (8.5-10.1)
[2023-12-27 09:38] LABS: MAGNESIUM 2.4 mg/dL (1.8-2.4)
[2023-12-27 09:40] LABS: CREATININE 0.7 mg/dL (0.55-1.3)
[2023-12-27 09:45] LABS: TOT PROT 6.9 g/dl (6.4-8.2)
[2023-12-27] MEDS: PHYTONADIONE 10 MG/1 ML AMP IVPB ONE (09:58)
[2023-12-27] MEDS: INDOMETHACIN 50 MG RECTAL SUPPOSITORY PR ONE (13:25)
[2023-12-27] MEDS ORDERED: FENTANYL CITRATE/PF 50 MCG/ML VIAL ONE (13:55)
[2023-12-27] MEDS ORDERED: MIDAZOLAM HCL 2 MG/2 ML SINGLE DOSE VIAL ONE (13:56)
[2023-12-27] MEDS: INDOMETHACIN 50 MG RECTAL SUPPOSITORY PR STA (14:08)
[2023-12-27] MEDS: IOHEXOL 300 MG/ML INFUS..BTL IV ONE (14:48)
[2023-12-27] MEDS ORDERED: LACTATED RINGERS SOLUTION 1,000 ML IV SCH (15:00)
[2023-12-27] MEDS: LACTATED RINGERS SOLUTION 1,000 ML IV SCH (18:03)
[2023-12-28] MEDS: LACTATED RINGERS SOLUTION 1,000 ML/1,000 ML INFUS.BAG IV SCH ×3 (02:11→17:04)
[2023-12-28 08:11] LABS: INR 1.17 (0.83-1.09); PROTHROMBIN TIME (PATIENT) 13.6 SEC (9.7-13.0)
[2023-12-28 08:13] LABS: BASO % 0.4 % (0-2.0); EOS % 0.6 % (0-4.5); HEMATOCRIT 39.7 % (32.4-45.2); HEMOGLOBIN 13.2 GM/dL (10.7-15.3); LYMPH % 22.7 % (8-40); MCH 30.6 pg (25.7-33.7); MCHC 33.1 g/dl (32.0-36.0); MEAN CELL VOLUME 92.4 fl (80-96); MEAN PLT VOLUME 10.3 fl (7.5-11.1); MONO % 6.1 % (3.8-10.2); NEUT % 70.2 % (42.8-82.8); PLATELET COUNT 227 10^3/uL (134-434); RDW 12.7 % (11.6-15.6); WHITE BLOOD COUNT 8.8 K/mm3 (4.0-10.0)
[2023-12-28 08:39] LABS: POTASSIUM 3.6 mmol/L (3.5-5.1)
[2023-12-28 08:47] LABS: BLOOD UREA NITROGEN 5.8 mg/dL (7-18)
[2023-12-28 08:48] LABS: ALBUMIN 3.4 g/dl (3.4-5.0); CALCIUM 8.8 mg/dL (8.5-10.1); MAGNESIUM 1.9 mg/dL (1.8-2.4)
[2023-12-28 08:51] LABS: CREATININE 0.7 mg/dL (0.55-1.3)
[2023-12-28 08:52] LABS: TOT PROT 6.5 g/dl (6.4-8.2)
[2023-12-28 09:01] LABS: BILIRUBIN,TOTAL 2.4 mg/dL (0.2-1)
[2023-12-28 09:11] LABS: BILIRUBIN,DIRECT 1.3 mg/dL (0.0-0.2)
[2023-12-28] MEDS: PANTOPRAZOLE 40 MG TABLET PO SCH (09:14)
[2023-12-28] MEDS: URSODIOL 300 MG CAPSULE PO SCH (21:16)
[2023-12-29 08:23] LABS: HEMATOCRIT 39.5 % (32.4-45.2); HEMOGLOBIN 13.5 GM/dL (10.7-15.3); LYMPH % 40.3 % (8-40); MCH 31.5 pg (25.7-33.7); MCHC 34.1 g/dl (32.0-36.0); MEAN CELL VOLUME 92.3 fl (80-96); MONO % 7.4 % (3.8-10.2); NEUT % 47.3 % (42.8-82.8); PLATELET COUNT 203 10^3/uL (134-434); RBC 4.28 M/mm3 (3.60-5.2); WHITE BLOOD COUNT 7.8 K/mm3 (4.0-10.0)
[2023-12-29 08:44] LABS: POTASSIUM 3.6 mmol/L (3.5-5.1)
[2023-12-29 08:48] LABS: ALBUMIN 3.3 g/dl (3.4-5.0)
[2023-12-29 08:49] LABS: BLOOD UREA NITROGEN 8.7 mg/dL (7-18)
[2023-12-29 08:50] LABS: CALCIUM 8.8 mg/dL (8.5-10.1)
[2023-12-29 08:51] LABS: CREATININE 0.6 mg/dL (0.55-1.3)
[2023-12-29 08:53] LABS: BILIRUBIN,TOTAL 1.1 mg/dL (0.2-1)
[2023-12-29 08:56] LABS: TOT PROT 6.4 g/dl (6.4-8.2)
[2023-12-29 15:34] VITALS: BP 118/72; PULSE 60; RESP 17; TEMP 97.5
== END 2023-12-29 18:24 | disposition home or self-care (01) ==
LOC: JER 21:12 → JERBED 12-25 04:50 → J7W 12-25 23:51
PROVIDERS: ADMIT Internal Medicine; ATTEND Nurse Practitioner Family
PROC: 0F798DZ Dilation of Common Bile Duct with Intraluminal Device, Via Natural or Artificial Opening Endoscopic (ICD-10-PCS; 2023-12-27)
PROC: 0FC98ZZ Extirpation of Matter from Common Bile Duct, Via Natural or Artificial Opening Endoscopic (ICD-10-PCS; principal; 2023-12-27 14:00)
DX: K83.1 Obstruction of bile duct (principal); R11.2 Nausea with vomiting, unspecified; R10.9 Unspecified abdominal pain; K83.8 Other specified diseases of biliary tract
CPT/HCPCS: 36415; 74177-TC; 74181-TC; 76000-TC-FY; 76705-TC; 80053; 82150; 82248; 83690; 83735; 84100; 84703; 85025; 85027; 85610; 85730; 86140; 86850; 86900; 86901; 87635; 93005; 93010; 99285-25; J0131